=== PATIENT | female | born 1990 | race Caucasian/White ===

== ENCOUNTER 2020-07-22 15:50 | Emergency (ER) | payer OTHER ==
[~2020-07-22] VITALS: Ht 157.5 cm; Wt 63.5 kg
[2020-07-22] MEDS ORDERED: SUPER THERAVIT1 EACH PO (16:09)
[2020-07-22 16:20] LABS: URINE BILIRUBIN NEGATIVE (Negative); URINE BLOOD TRACE (Negative); URINE CLARITY CLEAR; URINE COLOR YELLOW; URINE GLUCOSE-RANDOM NEGATIVE (Negative); URINE KETONES NEGATIVE (Negative); URINE LEUKOCYTES-REFLEX NEGATIVE (Negative); URINE NITRITE-REFLEX NEGATIVE (Negative); URINE PROTEIN NEGATIVE (Negative); URINE SPECIFIC GRAVITY 1.015 (1.005-1.030); URINE UROBILINOGEN 0.2 E.U./dl (0.2-1.0)
[2020-07-22 16:48] LABS: ABSOLUTE BASOPHILS 0.1 thou/uL (0.0-0.2); ABSOLUTE EOSINOPHILS 0.2 thou/uL (0.0-0.7); ABSOLUTE MONOCYTES 0.7 thou/uL (0.0-1.2); ABSOLUTE NEUTROPHILS 4.3 thou/uL (1.6-8.1); HEMATOCRIT 40.4 % (37.0-47.0); HEMOGLOBIN 13.4 gm/dL (12.0-15.0); LYMPHOCYTES 27.3 %; MCH 28.8 pg (26.0-34.0); MCHC 33.3 g/dL (28.0-37.0); MCV 86.6 fL (80.0-100.0); MONOCYTES 9.5 %; NUCLEATED RBCS 0 /100WBC; PLATELET COUNT* 132 thou/uL (150-400); POLYS 59.2 %; RBC 4.67 mil/uL (4.20-5.00); RDW-CV 13.6 % (10.5-14.5); WBC 7.2 thou/uL (4.0-11.0)
[2020-07-22 16:59] LABS: CALCIUM 8.7 mg/dL (8.5-10.1); POTASSIUM 3.7 mmol/L (3.5-5.1)
[2020-07-22 17:03] LABS: ALBUMIN 3.5 g/dL (3.4-5.0); TOTAL BILIRUBIN 0.3 mg/dL (<0.1-1.0); TOTAL PROTEIN 7.9 g/dL (6.4-8.2)
[2020-07-22] MEDS ORDERED: MEDROXYPROGESTE10 MG PO (18:30)
[2020-07-22] MEDS ORDERED: FLAGYL500 M1 PO (18:31)
[2020-07-22 18:36] VITALS: BP 132/77
== END 2020-07-22 18:37 | disposition home or self-care (01) ==
LOC: M.ERS 15:50
PROVIDERS: Nurse Practitioner Family
DX: N83.202 Unspecified ovarian cyst, left side (principal); N93.8 Other specified abnormal uterine and vaginal bleeding; N76.0 Acute vaginitis; B96.89 Other specified bacterial agents as the cause of diseases classified elsewhere; Z79.899 Other long term (current) drug therapy; Z98.890 Other specified postprocedural states

== ENCOUNTER 2020-09-12 11:03 | Emergency (ER) | payer OTHER ==
[~2020-09-12] VITALS: Ht 160 cm; Wt 68.0 kg
[~2020-09-12 11:03] MED LIST: FLAGYL500 M1 PO; MEDROXYPROGESTE10 MG PO; SUPER THERAVIT1 EACH PO
[2020-09-12 12:35] LABS: ABSOLUTE BASOPHILS 0.1 thou/uL (0.0-0.2); ABSOLUTE EOSINOPHILS 0.2 thou/uL (0.0-0.7); ABSOLUTE LYMPHOCYTES 1.7 thou/uL (0.8-5.3); ABSOLUTE MONOCYTES 0.5 thou/uL (0.0-1.2); ABSOLUTE NEUTROPHILS 5.1 thou/uL (1.6-8.1); BASOPHILS 0.7 %; EOSINOPHILS 3.2 %; HEMATOCRIT 39.1 % (37.0-47.0); HEMOGLOBIN 12.9 gm/dL (12.0-15.0); LYMPHOCYTES 22.6 %; MCH 29.1 pg (26.0-34.0); MCHC 33.1 g/dL (28.0-37.0); MONOCYTES 6.4 %; NUCLEATED RBCS 0 /100WBC; PLATELET COUNT* 118 thou/uL (150-400); POLYS 67.1 %; RBC 4.44 mil/uL (4.20-5.00); RDW-CV 13.3 % (10.5-14.5); WBC 7.6 thou/uL (4.0-11.0)
[2020-09-12 12:42] LABS: CALCIUM 9.1 mg/dL (8.5-10.1); CREATININE 0.8 mg/dL (0.6-1.3); POTASSIUM 4.4 mmol/L (3.5-5.1)
[2020-09-12 12:47] LABS: ALBUMIN 3.6 g/dL (3.4-5.0); TOTAL BILIRUBIN 0.3 mg/dL (<0.1-1.0); TOTAL PROTEIN 7.1 g/dL (6.4-8.2)
[2020-09-12] MEDS ORDERED: NAPROSYN500 MG PO (14:00)
[2020-09-12] MEDS ORDERED: HYDROCODON-ACE1 EAC7 PO (14:00)
[2020-09-12 14:48] VITALS: BP 122/69
== END 2020-09-12 14:50 | disposition home or self-care (01) ==
LOC: M.ERS 11:03
PROVIDERS: Physician Assistant
DX: S02.69XA Fracture of mandible of other specified site, initial encounter for closed fracture (principal); Z98.890 Other specified postprocedural states; W18.39XA Other fall on same level, initial encounter; Y93.89 Activity, other specified; Y92.89 Other specified places as the place of occurrence of the external cause; Y99.8 Other external cause status

== ENCOUNTER 2021-05-29 17:36 | Emergency (ER) | payer OTHER, MEDICAID ==
[~2021-05-29] VITALS: Ht 160 cm; Wt 68.0 kg
[~2021-05-29 17:36] MED LIST changes: +HYDROCODON-ACE1 EAC7 PO; +NAPROSYN500 MG PO
[2021-05-29] MEDS ORDERED: HYDRALAZINE 2525 MG PO (17:53)
[2021-05-29] MEDS ORDERED: ZOLOFT25 MG PO (17:54)
[2021-05-29 18:11] LABS: URINE BILIRUBIN NEGATIVE (Negative); URINE BLOOD NEGATIVE (Negative); URINE CLARITY CLEAR; URINE COLOR YELLOW; URINE GLUCOSE-RANDOM NEGATIVE (Negative); URINE KETONES NEGATIVE (Negative); URINE LEUKOCYTES-REFLEX NEGATIVE (Negative); URINE NITRITE-REFLEX NEGATIVE (Negative); URINE PROTEIN NEGATIVE (Negative); URINE UROBILINOGEN 0.2 E.U./dl (0.2-1.0)
[2021-05-29] MEDS ORDERED: XANAX 0.5 MG0.5 MG PO (19:17)
[2021-05-29 19:26] VITALS: BP 96/56
== END 2021-05-29 19:27 | disposition home or self-care (01) ==
LOC: M.ERS 17:36
PROVIDERS: Physician Assistant
DX: F41.8 Other specified anxiety disorders (principal); Z79.899 Other long term (current) drug therapy

== ENCOUNTER 2021-06-02 14:35 | Emergency (ER) | payer OTHER, MEDICAID ==
[~2021-06-02] VITALS: Ht 160 cm; Wt 68.0 kg
[~2021-06-02 14:35] MED LIST changes: +HYDRALAZINE 2525 MG PO; +XANAX 0.5 MG0.5 MG PO; +ZOLOFT25 MG PO
[2021-06-02 14:41] VITALS: BP 138/98
[2021-06-02 14:58] LABS: URINE BILIRUBIN NEGATIVE (Negative); URINE BLOOD NEGATIVE (Negative); URINE CLARITY CLEAR; URINE COLOR YELLOW; URINE GLUCOSE-RANDOM NEGATIVE (Negative); URINE KETONES NEGATIVE (Negative); URINE LEUKOCYTES-REFLEX NEGATIVE (Negative); URINE NITRITE-REFLEX NEGATIVE (Negative); URINE PROTEIN TRACE (Negative); URINE UROBILINOGEN 0.2 E.U./dl (0.2-1.0)
[2021-06-02 15:04] LABS: AMP/METHAMP Negative (Negative); BARBITURATES Negative (Negative); BENZODIAZEPINES POSITIVE (Negative); COCAINE Negative (Negative); METHADONE Negative (Negative); OPIATES Negative (Negative); PCP Negative (Negative); THC Negative (Negative)
[2021-06-02 15:26] LABS: ABSOLUTE EOSINOPHILS 0.2 thou/uL (0.0-0.7); ABSOLUTE LYMPHOCYTES 2.5 thou/uL (0.8-5.3); ABSOLUTE MONOCYTES 0.6 thou/uL (0.0-1.2); BASOPHILS 0.5 %; EOSINOPHILS 2.6 %; HEMOGLOBIN 14.2 gm/dL (12.0-15.0); LYMPHOCYTES 26.3 %; MCH 28.9 pg (26.0-34.0); MCHC 33.7 g/dL (28.0-37.0); MCV 85.6 fL (80.0-100.0); MONOCYTES 6.5 %; MPV 10.1 fl. (7.2-11.1); NUCLEATED RBCS 0 /100WBC; PLATELET COUNT* 122 thou/uL (150-400); POLYS 64.1 %; RBC 4.91 mil/uL (4.20-5.00); RDW-CV 13.3 % (10.5-14.5); WBC 9.4 thou/uL (4.0-11.0)
[2021-06-02 15:34] LABS: POTASSIUM 3.9 mmol/L (3.5-5.1)
[2021-06-02 15:39] LABS: ALBUMIN 4.2 g/dL (3.4-5.0); TOTAL BILIRUBIN 0.3 mg/dL (<0.1-1.0); TOTAL PROTEIN 7.6 g/dL (6.4-8.2)
[2021-06-02 15:44] LABS: ALCOHOL < 10 mg/dL (<10); SALICYLATE < 2.8 mg/dL (2.8-20.0)
[2021-06-02 15:46] LABS: ACETAMINOPHEN < 2 ug/mL (10-30)
== END 2021-06-02 15:54 ==
LOC: M.ERS 14:35
PROVIDERS: Family Medicine
DX: F32.9 Major depressive disorder, single episode, unspecified (principal); Z20.822 Contact with and (suspected) exposure to COVID-19; F41.9 Anxiety disorder, unspecified; Z98.890 Other specified postprocedural states; Z79.899 Other long term (current) drug therapy

== ENCOUNTER 2021-10-08 19:22 | Emergency (ER) | payer OTHER, MEDICAID ==
[~2021-10-08] VITALS: Ht 160 cm; Wt 68.0 kg
[2021-10-08] MEDS ORDERED: NEURONTIN300 MG PO (20:16)
[2021-10-08] MEDS ORDERED: LEXAPRO20 MG PO (20:17)
[2021-10-08] MEDS ORDERED: TRAZODONE HCL50 MG PO (20:17)
[2021-10-08 22:34] VITALS: BP 133/90
== END 2021-10-08 22:34 | disposition left against medical advice (07) ==
LOC: M.ERS 19:22
DX: R10.12 Left upper quadrant pain (principal); M54.50 Low back pain, unspecified; Z53.21 Procedure and treatment not carried out due to patient leaving prior to being seen by health care provider; Z98.890 Other specified postprocedural states; Z90.49 Acquired absence of other specified parts of digestive tract